=== PATIENT | male | born 1945 | race Caucasian/White ===

== ENCOUNTER → 2017-01-03 | Outpatient (CLI) | payer MEDICARE, OTHER ==
--- NOTE | 2017-01-04 09:41 | RADIOLOGY REPORT (SQ) ---
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 RADIONUCLIDE AND DOSE: 11.5 mCi F18 FDG The route of agent administration: Intravenous FASTING BLOOD SUGAR: 72 mg/dl CONTRAST TYPE AND DOSE: No CT contrast given. TECHNIQUE: Blood glucose level was verified. Above dose of FDG was injected intravenously. 2-D seg mented attenuation correction images were obtained from the base of the skull to the midthighs. Nonc ontrast CT images were obtained for attenuation correction and fusion with emission images. CT image s were performed without oral or intravenous contrast and are not sensitive for parenchymal lesions. A series of overlapping emission PET images were obtained. Images reviewed and manipulated at [facility] work station by the radiologist. Images stored on PACS. LIMITATIONS: None. FINDINGS: HEAD AND NECK: No areas of abnormal metabolic activity in the soft tissues of the head and neck. CHEST: Hypermetabolic left station 6 mass/conglomerate of nodes measuring 8.6 x 3.2 cm and 12 SUV. H ypermetabolic mass in the lingula measuring about 3.1 x 7.8 cm and 9.5 SUV. Hypermetabolic station 7 node measuring roughly 3.1 x 3.6 cm and 12 SUV. Left hilar nodes measuring up to 1.5 cm and 9.6 SUV . ABDOMEN AND PELVIS: No areas of abnormal metabolic activity in the abdomen or pelvis. Expected physi ologic activity is present in the genitourinary system and bowel. PROXIMAL LOWER EXTREMITIES: No areas of abnormal metabolic activity in the soft tissues of the lower extremities. BONES: No abnormal metabolic activity in the visualized skeleton. ADDITIONAL CT FINDINGS: No additional significant findings on the noncontrast CT images. OTHER: No other significant findings. IMPRESSION: Hypermetabolic mass in the lingula. Hypermetabolic station 6, 7 and 10 nodes. TECHNICAL DOCUMENTATION: JOB ID: [id number]- All Rights Reserved
== END ==
LOC: RAD 18:53
PROVIDERS: ATTEND Internal Medicine Medical Oncology
DX: C34.92 Malignant neoplasm of unspecified part of left bronchus or lung (principal)
CPT/HCPCS: 78815; A9552

== ENCOUNTER → 2017-01-12 | Outpatient (CLI) | payer MEDICARE, OTHER ==
--- NOTE | 2017-01-12 10:07 | RADIOLOGY REPORT (SQ) ---
EXAM DESCRIPTION: MRI HEAD COMBO COMPLETED DATE/TIME: 01/12/2017 8:56 am REASON FOR STUDY: MALIGNANT NEOPLASM OF UNSP PART OF UNSP BRONCHUS OR LUNG (C34.90) C34.90 MALIGNAN T NEOPLASM OF UNSP PART OF UNSP BRONCHUS OR L COMPARISON: None. TECHNIQUE: Multiplanar imaging includes noncontrasted T1, T2, FLAIR, diffusion with ADC map and post gadolinium contrast T1 sequences. Images stored on PACS. CONTRAST TYPE AND DOSE: 15 mL Multihance. RENAL FUNCTION: GFR 54 LIMITATIONS: None. FINDINGS: ANATOMY: No anomalies. Normal vascular flow voids. Pituitary fossa normal. CSF SPACES: Normal in size and contour. No hemorrhage. CEREBRUM: Sulci and gyri normal in size and contour. Spotty multifocal white matter signal on FLAIR imaging. Likely related to small vessel vasculopathy, typically microvascular ischemic disease in a patient of this age. No evidence of hemorrhage, mass, or extraaxial fluid collection. No abnormal en hancement post contrast. POSTERIOR FOSSA: No signal alteration. No hemorrhage. No edema, masses, or mass effect. Internal eloy tory canals, cerebellopontine angles, mastoids normal. No enhancing lesions. No abnormal enhancement post contrast. DIFFUSION IMAGING: Negative for acute or subacute infarction. ORBITS: No masses. Globes normal. PARANASAL SINUSES: No fluid levels. Mucosa normal. OTHER: No other significant finding. IMPRESSION: 1. Mild chronic small vessel changes. No acute or suspicious intracranial abnormality. No enhancing lesions or evidence of metastatic disease. EVIDENCE OF ACUTE STROKE: NO. TECHNICAL DOCUMENTATION: JOB ID: [id number] [employer]- All Rights Reserved
== END ==
LOC: RAD 06:47
PROVIDERS: ATTEND Radiology Radiation Oncology
DX: C34.90 Malignant neoplasm of unspecified part of unspecified bronchus or lung (principal)
CPT/HCPCS: 82565; 70553; A9577

== ENCOUNTER → 2017-03-03 | Outpatient (CLI) | payer MEDICARE, OTHER ==
--- NOTE | 2017-03-03 12:34 | RADIOLOGY REPORT (SQ) ---
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 Images reviewed with lung, soft tissue and bone windows. Reconstructed coronal and sagittal MPR images reviewed. All images stored on PACS. All CT scanners at this facility use dose modulation, iterative reconstruction, and/or weight based d osing when appropriate to reduce radiation dose to as low as reasonably achievable (ALARA). [facility]: Dose Right [facility]: CareDose [facility]: Dose Right [facility]: Teradose 4D [facility]: [employer] CONTRAST TYPE AND DOSE: contrast/concentration: Isovue 370.00 mg/ml; Total Contrast Delivered: 80.0 ml; Total Saline Delivered: 55.0 ml RENAL FUNCTION: Creatinine 1.1 BUN 19 RADIATION DOSE: CT Rad equipment meets quality standard of care and radiation dose reduction techniq ues were employed. CTDIvol: 7.7 mGy. DLP: 338 mGy-cm. . LIMITATIONS: None. FINDINGS: LUNGS AND PLEURA: There is an area of masslike thickening along the fissure on the left si de. This measures 37 x 15 mm. This is best seen on image 76 series 4. Pleural thickening with calc ification in the dome of left diaphragm. No other pleural or pulmonary abnormality is seen. HILAR AND MEDIASTINAL STRUCTURES: There are multiple small nonspecific mediastinal nodes. HEART AND VASCULAR STRUCTURES: No aneurysm or dissection. No central pulmonary emboli. No pericardi al effusion. HARDWARE: Injection port on the right. UPPER ABDOMEN: No significant abnormality. THYROID AND OTHER SOFT TISSUES: No masses. No adenopathy. BONES: No osseous lesions is seen. OTHER: No other significant finding. IMPRESSION: 1. Masslike thickening along the fissure on the left. Concerning for neoplasm, especia lly given the PET-CT findings. 2. Pleural thickening with calcification at the dome of the left diaphragm. 3. Small nonspecific mediastinal nodes. TECHNICAL DOCUMENTATION: JOB ID: [id number] Quality ID # [id number]: Final reports with documentation of one or more dose reduction techniques (e.g., Au tomated exposure control, adjustment of the mA and/or kV according to patient size, use of iterative reconstruction technique) 2010 [employer]- All Rights Reserved
== END ==
LOC: RAD 09:34
PROVIDERS: ATTEND Internal Medicine Medical Oncology
DX: C34.92 Malignant neoplasm of unspecified part of left bronchus or lung (principal)
CPT/HCPCS: 71260

== ENCOUNTER 2017-04-23 19:41 | Emergency (ER) | payer MEDICARE, OTHER ==
[2017-04-23] MEDS ORDERED: NORMAL SALINE 1000 ML 1,000 ML IV ONE (20:05)
--- NOTE | 2017-04-23 20:07 | ER Document Report ---
ED General - General Stated Complaint: GENERAL WEAKNESS Time Seen by Provider: 04/23/17 19:56 Notes: Patient is a 72-year-old male that comes by EMS for chief complaint of generalized weakness. He states that he felt okay until today and now he feels like he is weak and just wants to lie in bed. He states he is thirsty. states he has not had anything to eat or drink today. states that he cannot get out of bed or even walk today, normally he walks without assistance and cares for himself mainly. states his urine is dark and foul smelling. He denies fever, nausea or vomiting, shortness of breath, chest pain, any locations of pain. He recently completed a round of chemotherapy over 2 weeks ago, pending radiation therapy for lung cancer. No metastasis known. Other past medical history includes type 2 diabetes on insulin and BPH. No cardiovascular history reported. He sees Dr. Low, [place] TRAVEL OUTSIDE OF THE [place] IN LAST 30 DAYS: No - Related Data Allergies/Adverse Reactions: No Known Allergies Allergy (Unverified 04/24/17 00:09) Past Medical History - General Information source: Patient - Social History Smoking Status: Never Smoker Frequency of alcohol use: None Drug Abuse: None Lives with: Family Family History: Reviewed & Not Pertinent Endocrine Medical History: Reports: Hx Diabetes Mellitus Type 2 Malignancy Medical History: Reports Hx Lung Cancer Surgical Hx: Negative - Immunizations Immunizations up to date: Yes Hx Diphtheria, Pertussis, Tetanus Vaccination: Yes Review of Systems - Review of Systems Constitutional: See HPI EENT: No symptoms reported Cardiovascular: No symptoms reported Respiratory: No symptoms reported Gastrointestinal: No symptoms reported Genitourinary: No symptoms reported Male Genitourinary: No symptoms reported Musculoskeletal: No symptoms reported Skin: No symptoms reported Hematologic/Lymphatic: No symptoms reported Neurological/Psychological: No symptoms reported Physical Exam - Vital signs Vitals: Resp Pulse Ox 18 91 L 04/23/17 19:57 04/23/17 19:57 Interpretation: Normal - General General appearance: Appears well, Alert In distress: None - HEENT Head: Normocephalic, Atraumatic Eyes: Normal Conjunctiva: Normal Extraocular movements intact: Yes Eyelashes: Normal Pupils: PERRL Nasal: Normal Mouth/Lips: Normal Mucous membranes: Normal Pharynx: Normal Neck: Normal - Respiratory Respiratory status: No respiratory distress Chest status: Nontender Breath sounds: Normal. No: Decreased air movement, Wheezing Chest palpation: Normal - Cardiovascular Rhythm: Regular. No: Tachycardia Heart sounds: Normal auscultation, S1 appreciated, S2 appreciated Murmur: No - Abdominal Inspection: Normal Distension: No distension Bowel sounds: Normal Tenderness: Nontender. No: Tender, Guarding - Back Back: Normal, Nontender - Extremities General upper extremity: Normal inspection, Nontender, Normal strength, Normal temperature General lower extremity: Other - Slightly weak in both legs although he can raise both equally and pressed down with both feet equally, normal distal neurovascular exam - Neurological Neuro grossly intact: Yes Cognition: Normal Orientation: AAOx4 Rafael Coma Scale Eye Opening: Spontaneous [place] Coma Scale Verbal: Oriented Rafael Coma Scale Motor: Obeys Commands York Coma Scale Total: 15 Speech: Normal Cranial nerves: Normal Cerebellar coordination: Other - Patient cannot sit up or stand up on his own Sensory: Normal - Psychological Associated symptoms: Normal affect, Normal mood - Skin Skin Temperature: Warm Skin Moisture: Dry Skin Color: Normal Course - Re-evaluation Re-evalutation: CBC, chemistry generally unremarkable. Catheter performed to obtain urine because patient could not urinate initially, he was given IV fluids. Urine does indicate infection with 3+ bacteria, white blood cells, culture was placed. Given Rocephin. Discussed results with family, will attempt to send patient home with oral antibiotics and close follow-up with his oncologist. We will call his oncologist. concerned because patient cannot walk. I attempted to get patient up, he collapses back down to the bed. I attempted to stand the patient and have him ambulate but I had to pull him out of bed and he practically pulled me back down into the bed. Unable to ambulate. Performed Cat scan to rule out mass because of this. Blood cultures will be run, lactic acid and troponin/EKG checked. Patient did develop a fever, given Tylenol. Attempted to contact patient's Oncologist, Dr. Low, still pending call back. No remarkable additional workup. Suspect weakness is from the UTI. Discussed with Dr. Heredia, patient to be admitted to the hospital. Dr. Heredia requests consult with neurology because of patient's inability to walk. 04/24/17 03:30 Patient was reevaluated again at bedside, I began to discuss details again with patient and family, noticed patient is soaked although his color is improved. Appears to have broken the fever. Patient is now able to sit up and is more verbal. Patient is drinking p.o. fluids. Will reevaluate shortly. 04/24/17 On reevaluation patient can now sit up, stand up, and ambulate without any difficulty. Patient is asking to go home. Discussed with Dr. Dias. Patient will be covered with antibiotics, instructed to treat fever to keep the symptoms away, discussed return precautions in detail, patient and state understanding and agreement. - Vital Signs Vital signs: Temp Pulse Resp BP Pulse Ox 98.1 F 21 H 119/60 93 04/24/17 04:34 04/24/17 03:31 04/24/17 04:03 04/24/17 04:01 - Laboratory Result Diagrams: 04/23/17 19:54 04/23/17 19:54 Laboratory results interpreted by me: 04/23/17 04/23/17 04/23/17 19:54 19:54 19:54 RBC 3.49 L Hgb 11.4 L Hct 33.8 L RDW 15.4 H Monocytes % 19.6 H Absolute Monocytes 1.5 H VBG pH VBG pCO2 BUN 28 H Creatinine 1.32 H Est GFR (Non-Af Amer) 53 L Glucose 244 H Alkaline Phosphatase 127 H Creatine Kinase 37 L Urine Protein Urine Glucose (UA) Urine Blood Ur Leukocyte Esterase 04/23/17 04/24/17 22:25 00:51 RBC Hgb Hct RDW Monocytes % Absolute Monocytes VBG pH 7.46 H VBG pCO2 34.6 L BUN Creatinine Est GFR (Non-Af Amer) Glucose Alkaline Phosphatase Creatine Kinase Urine Protein 30 H Urine Glucose (UA) 50 H Urine Blood SMALL H Ur Leukocyte Esterase SMALL H Discharge - Discharge Clinical Impression: Weakness Urinary tract infection Qualifiers: Urinary tract infection type: site unspecified Hematuria presence: without hematuria Qualified Code(s): N39.0 - Urinary tract infection, site not specified Fever Qualifiers: Fever type: unspecified Qualified Code(s): R50.9 - Fever, unspecified Condition: Stable Disposition: HOME, SELF-CARE Additional Instructions: Workup shows a urinary tract infection, we have a culture pending. Take the Keflex antibiotics as directed, rest, drink plenty fluids. Follow-up on Wednesday with your primary care provider. Return if you worsen in anyway including increased weakness, vomiting, confusion , or any other concerning symptoms. Prescriptions: Cephalexin Monohydrate [Keflex 500 mg Capsule] 500 mg PO QID #28 capsule
[2017-04-23 20:11] LABS: ABSOLUTE MONOCYTES (AUTO) 1.5 10^3/uL (0.1-1.4); BASOPHILS % (AUTO) 0.4 % (0-2); HEMATOCRIT 33.8 % (37.9-51.0); HEMOGLOBIN 11.4 g/dL (13.5-17.0); LYMPHOCYTES % (AUTO) 13.5 % (13-45); MEAN CORPUSCULAR HEMOGLOBIN 32.6 pg (27.0-33.4); MEAN CORPUSCULAR HGB CONC 33.6 g/dL (32.0-36.0); MEAN CORPUSCULAR VOLUME 97 fl (80-97); MONOCYTES % (AUTO) 19.6 % (3-13); PLATELET COUNT 407 10^3/uL (150-450); RED BLOOD COUNT 3.49 10^6/uL (4.35-5.55); RED CELL DISTRIBUTION WIDTH 15.4 % (11.5-14.0); SEGMENTED NEUTROPHILS % (AUTO) 66.5 % (42-78); TOTAL CELLS COUNTED % (AUTO) 100 %; WHITE BLOOD COUNT 7.6 10^3/uL (4.0-10.5)
[2017-04-23 20:32] LABS: ALANINE AMINOTRANSFERASE 41 U/L (21-72); ALBUMIN 4.1 g/dL (3.5-5.0); ALKALINE PHOSPHATASE 127 U/L (38-126); ANION GAP 10 (5-19); ASPARTATE AMINO TRANSFERASE 29 U/L (17-59); BILIRUBIN,DIRECT 0.3 mg/dL (0.0-0.4); BILIRUBIN,TOTAL 0.8 mg/dL (0.2-1.3); BLOOD UREA NITROGEN 28 mg/dL (7-20); CALCIUM 9.6 mg/dL (8.4-10.2); CARBON DIOXIDE 24 mmol/L (22-30); CHLORIDE 103 mmol/L (98-107); GLUCOSE 244 mg/dL (75-110); POTASSIUM 4.5 mmol/L (3.6-5.0); TOTAL PROTEIN 7.3 g/dL (6.3-8.2)
[2017-04-23 22:59] LABS: APPEARANCE,URINE CLOUDY; BILIRUBIN,URINE NEGATIVE (NEGATIVE); COLOR,URINE YELLOW; GLUCOSE, URINE 50 mg/dL (NEGATIVE); KETONES,URINE NEGATIVE (NEGATIVE); LEUKOCYTE ESTERASE,URINE SMALL (NEGATIVE); NITRITE,URINE NEGATIVE (NEGATIVE); PROTEIN,URINE 30 mg/dL (NEGATIVE); URINE SPECIFIC GRAVITY 1.016; UROBILINOGEN,URINE NEGATIVE mg/dL (<2.0)
[2017-04-23] MEDS ORDERED: CEFTRIAXONE 1 GM/D5W RTU 1 GM/50 ML RTUPB IV ONE (23:12)
[2017-04-24] MEDS ORDERED: ACETAMINOPHEN 325 MG TABLET PO ONE (00:25)
[2017-04-24] MEDS ORDERED: CEFTRIAXONE INJ 1000 MG VIAL ONE (00:29)
[2017-04-24 01:05] LABS: VENOUS BLOOD BASE EXCESS 0.4 mmol/L; VENOUS BLOOD HCO3 23.9 mmol/L (20-32); VENOUS BLOOD PCO2 34.6 mmHg (35-63); VENOUS BLOOD PH 7.46 (7.30-7.42)
--- NOTE | 2017-04-24 02:17 | RADIOLOGY REPORT (SQ) ---
EXAM DESCRIPTION: CHEST SINGLE VIEW CLINICAL HISTORY: 72 years, Male, hypoxia COMPARISON: CT, 03/03/2017. LIMITATIONS: None. FINDINGS: Small bandlike opacity of the left lower lobe, moderate elevation of the left hemidiaphragm, normal cardiac silhouette, atherosclerosis, right jugular miniport catheter tip at the cavoatrial junction, and cervicothoracic hardware fusion. Stable. IMPRESSION: Stable bandlike opacity of the left lower lobe. 2011 [employer]- All Rights Reserved
--- NOTE | 2017-04-24 02:30 | RADIOLOGY REPORT (SQ) ---
EXAM DESCRIPTION: CT HEAD WITHOUT CLINICAL HISTORY: 72 years Male, can't stand/walk, has cancer COMPARISON: 01/12/2017. TECHNIQUE: No contrast. This exam was performed according to our departmental dose-optimization program, which includes automated exposure control, adjustment of the mA and/or kV according to patient size and/or use of iterative reconstruction technique. FINDINGS: Minimal white matter microangiopathy, and atherosclerosis. No hemorrhage or infarct. No mass, mass effect, or midline shift. Extra-axial structures appear otherwise grossly intact. IMPRESSION: No acute findings.
--- NOTE | 2017-04-24 03:56 | ER Document Report ---
ED General - General Chief Complaint: General Weakness Stated Complaint: GENERAL WEAKNESS Time Seen by Provider: 04/23/17 19:56 Notes: Patient is a 72-year-old male that comes by EMS for chief complaint of generalized weakness. He states that he felt okay until today and now he feels like he is weak and just wants to lie in bed. He states he is thirsty. states he has not had anything to eat or drink today. states that he cannot get out of bed or even walk today, normally he walks without assistance and cares for himself mainly. states his urine is dark and foul smelling. He denies fever, nausea or vomiting, shortness of breath, chest pain, any locations of pain. He recently completed a round of chemotherapy over 2 weeks ago, pending radiation therapy for lung cancer. No metastasis known. Other past medical history includes type 2 diabetes on insulin and BPH. No cardiovascular history reported. He sees Dr. Low, [place] TRAVEL OUTSIDE OF THE [place] IN LAST 30 DAYS: No - Related Data Allergies/Adverse Reactions: No Known Allergies Allergy (Unverified 04/24/17 00:09) Past Medical History - Social History Smoking Status: Unknown if Ever Smoked Patient has suicidal ideation: No Patient has homicidal ideation: No Renal/ Medical History: Denies: Hx Peritoneal Dialysis Physical Exam - Vital signs Vitals: Resp Pulse Ox 18 91 L 04/23/17 19:57 04/23/17 19:57 Course - Re-evaluation Re-evalutation: CBC, chemistry generally unremarkable. Catheter performed to obtain urine because patient could not urinate initially, he was given IV fluids. Urine does indicate infection with 3+ bacteria, white blood cells, culture was placed. Given Rocephin. Discussed results with family, will attempt to send patient home with oral antibiotics and close follow-up with his oncologist. We will call his oncologist. concerned because patient cannot walk. I attempted to get patient up, he collapses back down to the bed. I attempted to stand the patient and have him ambulate but I had to pull him out of bed and he practically pulled me back down into the bed. Unable to ambulate. Performed Cat scan to rule out mass because of this. Blood cultures will be run, lactic acid and troponin/EKG checked. Patient did develop a fever, given Tylenol. Attempted to contact patient's Oncologist, Dr. Low, still pending call back. No remarkable additional workup. Suspect weakness is from the UTI. Discussed with Dr. Heredia, patient will be admitted to the hospital. Dr. Heredia requests consult with neurology because of patient's inability to walk. 04/24/17 03:30 Patient was reevaluated again at bedside, I began to discuss details again with patient and family, noticed patient is soaked although his color is improved. Appears to have broken the fever. Patient is now able to sit up and is more verbal. Patient is drinking p.o. fluids. Will reevaluate shortly. - Vital Signs Vital signs: Temp Pulse Resp BP Pulse Ox 98.3 F 21 H 121/60 91 L 04/24/17 02:58 04/24/17 02:31 04/24/17 02:31 04/24/17 02:31 - Laboratory Result Diagrams: 04/23/17 19:54 04/23/17 19:54 Laboratory results interpreted by me: 04/23/17 04/23/17 04/23/17 19:54 19:54 19:54 RBC 3.49 L Hgb 11.4 L Hct 33.8 L RDW 15.4 H Monocytes % 19.6 H Absolute Monocytes 1.5 H VBG pH VBG pCO2 BUN 28 H Creatinine 1.32 H Est GFR (Non-Af Amer) 53 L Glucose 244 H Alkaline Phosphatase 127 H Creatine Kinase 37 L Urine Protein Urine Glucose (UA) Urine Blood Ur Leukocyte Esterase 04/23/17 04/24/17 22:25 00:51 RBC Hgb Hct RDW Monocytes % Absolute Monocytes VBG pH 7.46 H VBG pCO2 34.6 L BUN Creatinine Est GFR (Non-Af Amer) Glucose Alkaline Phosphatase Creatine Kinase Urine Protein 30 H Urine Glucose (UA) 50 H Urine Blood SMALL H Ur Leukocyte Esterase SMALL H Discharge - Discharge Clinical Impression: Weakness Urinary tract infection Qualifiers: Urinary tract infection type: site unspecified Hematuria presence: without hematuria Qualified Code(s): N39.0 - Urinary tract infection, site not specified Fever Qualifiers: Fever type: unspecified Qualified Code(s): R50.9 - Fever, unspecified Condition: Stable Disposition: HOME, SELF-CARE
[2017-04-24 04:35] VITALS: BP 119/60
--- NOTE | 2017-04-24 10:24 | EKG REPORT ---
SEVERITY:- BORDERLINE ECG - SINUS RHYTHM BORDERLINE T WAVE ABNORMALITIES : Confirmed by: Brett Bullard 24-Apr-2017 10:24:05
== END 2017-04-24 04:35 | disposition home or self-care (01) ==
LOC: ER 19:41 → UNDOADMIN 04-24 02:52 → EH 04-24 02:52 → ER 04-24 04:35
DX: R53.1 Weakness (principal); N39.0 Urinary tract infection, site not specified; R50.9 Fever, unspecified; E11.9 Type 2 diabetes mellitus without complications
CPT/HCPCS: 93005; 99285; 96361; 96365; 36415; 87040; 87086; 82550; 85025; 87088; 80053; 81001; 84484; 87186; 82803; 83605; 71045; 70450; 93010; A9270; J0696; J7030

== ENCOUNTER → 2017-09-28 | Outpatient (CLI) | payer MEDICARE, OTHER ==
--- NOTE | 2017-09-28 12:27 | RADIOLOGY REPORT (SQ) ---
EXAM DESCRIPTION: CT CHEST WITH; CT ABDOMEN IV CONTRAST ONLY COMPLETED DATE/TIME: 09/28/2017 10:14 am REASON FOR STUDY: MALIGNANT NEOPLASM OF UNSP PART OF LEFT BRONCHUS OR LUNG C34.92 MALIGNANT NEOPLAS M OF UNSP PART OF LEFT BRONCHUS OR L COMPARISON: CT chest 03/03/2017 PET-CT 01/13/2017 CONTRAST TYPE AND DOSE: contrast/concentration: Isovue 370.00 mg/ml; Total Contrast Delivered: 83.0 ml; Total Saline Delivered: 68.0 ml RENAL FUNCTION: Creatinine 1.0 TECHNIQUE: CT scan of the chest performed using helical scanning technique with dynamic intravenous contrast injection. Images reviewed with lung, soft tissue and bone windows. Reconstructed coronal a nd sagittal MPR images reviewed. All images stored on PACS. CT scan of the abdomen performed with intravenous and without oral contrastusing helical scanning corby hnique with dynamic intravenous contrast injection. Images reviewed with lung, soft tissue and bone windows. Reconstructed coronal and sagittal MPR images reviewed. Delayed images for evaluation of t he urinary system also acquired and evaluated. All images stored on PACS. All CT scanners at this facility use dose modulation, iterative reconstruction, and/or weight based d osing when appropriate to reduce radiation dose to as low as reasonably achievable (ALARA). [facility]: Dose Right [facility]: CareDose [facility]: Dose Right [facility]: Teradose 4D [facility]: [employer] RADIATION DOSE: CT Rad equipment meets quality standard of care and radiation dose reduction techniq ues were employed. CTDIvol: 5.9 - 7.1 mGy. DLP: 749 mGy-cm. . LIMITATIONS: None. FINDINGS: CHEST: LUNGS AND PLEURA: On axial image 77, bandlike scarring or consolidation is present, 3.4 x 1.5 cm in s ize (was 3.7 x 1.5 cm on 03/03/2017, 7.8 x 3 cm in size on PET-CT 01/13/2017. Stable benign calcified granuloma left upper lobe. Stable left pleural plaques. No pleural effusion s or pneumothorax. No worrisome right-sided nodules. HILAR AND MEDIASTINAL STRUCTURES: Left hilar and prevascular lymph nodes seen on PET-CT 01/13/2017 awan ve significantly decreased in size, on today's exam a sub- carinal lymph node 1.6 x 0.9 cm persists, unchanged from 03/03/2017 (was 3.6 x 3 cm on PET-CT 01/13/2017. On today's study, less than 7 mm short axis prevascular lymph nodes are present unchanged from 2016) was conglomerate mass of adenopathy 8.6 x 3.2 cm on PET-CT 01/13/2017). HEART AND VASCULAR STRUCTURES: No aneurysm or dissection. No central pulmonary emboli. No pericardi al effusion. Moderate coronary artery calcifications HARDWARE: None. THYROID AND OTHER SOFT TISSUES: No masses. No adenopathy. BONES: No significant finding. OTHER: No other significant finding. ABDOMEN AND PELVIS: LIVER: Normal size. No masses. No dilated ducts. SPLEEN: Normal size. No focal lesions. PANCREAS: No masses. No significant calcifications. No adjacent inflammation or peripancreatic fluid collections. Pancreatic duct not dilated. GALLBLADDER: No identified stones by CT criteria. No inflammatory changes to suggest cholecystitis. ADRENAL GLANDS: No significant masses or asymmetry. RIGHT KIDNEY AND URETER: No solid masses. No significant calcification. No hydronephrosis or hydroure ter. LEFT KIDNEY AND URETER: No solid masses. No significant calcification. No hydronephrosis or hydrouret er. AORTA AND VESSELS: No abdominal aortic aneurysm. No dissection. Visceral artery origin calcification without high-grade stenosis. RETROPERITONEUM: No retroperitoneal adenopathy, hemorrhage or masses. BOWEL AND PERITONEAL CAVITY: No masses or inflammatory changes. No free fluid or peritoneal masses. APPENDIX: Not in the field of view ABDOMINAL WALL: No masses. No hernias. BONES: No significant or acute findings. OTHER: No other significant finding. IMPRESSION: Treatment response, with decrease in size of lingular mass, decrease in size of mediasti nal and adenopathy compared to PET-CT 01/13/2017. Further decrease in size of lingular mass since . No CT evidence of metastatic disease to the abdomen TECHNICAL DOCUMENTATION: JOB ID: [id number] Quality ID # [id number]: Final reports with documentation of one or more dose reduction techniques (e.g., Au tomated exposure control, adjustment of the mA and/or kV according to patient size, use of iterative reconstruction technique) 2010 [employer]- All Rights Reserved Reading location - IP/workstation name: [facility]
== END ==
LOC: RAD 09:50
PROVIDERS: ATTEND Internal Medicine Medical Oncology
DX: C34.92 Malignant neoplasm of unspecified part of left bronchus or lung (principal)
CPT/HCPCS: 71260; 74160; 82565

== ENCOUNTER → 2017-12-14 | Outpatient (CLI) | payer MEDICARE, OTHER ==
--- NOTE | 2017-12-15 09:52 | RADIOLOGY REPORT (SQ) ---
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 TECHNIQUE: Blood glucose level was verified. Above dose of FDG was injected intravenously. 2-D seg mented attenuation correction images were obtained from the base of the skull to the midthighs. Nonc ontrast CT images were obtained for attenuation correction and fusion with emission images. CT image s were performed without oral or intravenous contrast and are not sensitive for parenchymal lesions. A series of overlapping emission PET images were obtained. Images reviewed and manipulated at [facility] by the radiologist. Images stored on PACS. LIMITATIONS: None. FINDINGS: HEAD AND NECK: No areas of abnormal metabolic activity in the soft tissues of the head and neck. CHEST: Marked improvement. Residual mildly hypermetabolic 1 cm station 4R node 2.2 to 3.0 SUV. Stat ion 10R 1 cm node 2.6 to 3.0 SUV. Subsegmental airspace disease left lower lobe 3.4 to 4.0 SUV. ABDOMEN AND PELVIS: No areas of abnormal metabolic activity in the abdomen or pelvis. Expected physi ologic activity is present in the genitourinary system and bowel. PROXIMAL LOWER EXTREMITIES: No areas of abnormal metabolic activity in the soft tissues of the lower extremities. BONES: No abnormal metabolic activity in the visualized skeleton. ADDITIONAL CT FINDINGS: No significant change in morphologic appearance of airspace disease in the le ft lower lobe since the CT 12/07/2017. Note on that report, the abnormality is described as being in t he right lower lobe however it was and still is in the left lower lobe. OTHER: No other significant findings. IMPRESSION: 1. Marked improvement with residual small station 4R and 10R hypermetabolic nodes. 2. Hypermetabolic left lower lobe airspace disease is nonspecific. Infectious, post radiation, less likely bronchogenic spread of tumor. TECHNICAL DOCUMENTATION: JOB ID: [id number] [employer]- All Rights Reserved Reading location - IP/workstation name: [email or web address]
== END ==
LOC: RAD 18:09
PROVIDERS: ATTEND Internal Medicine Medical Oncology
DX: C34.92 Malignant neoplasm of unspecified part of left bronchus or lung (principal)
CPT/HCPCS: 78815; A9552

== ENCOUNTER → 2018-05-17 | Outpatient (CLI) | payer MEDICARE, OTHER ==
--- NOTE | 2018-05-18 09:23 | RADIOLOGY REPORT (SQ) ---
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 TECHNIQUE: Blood glucose level was verified. Above dose of FDG was injected intravenously. 2-D seg mented attenuation correction images were obtained from the base of the skull to the midthighs. Nonc ontrast CT images were obtained for attenuation correction and fusion with emission images. CT image s were performed without oral or intravenous contrast and are not sensitive for parenchymal lesions. A series of overlapping emission PET images were obtained. Images reviewed and manipulated at [facility] work station by the radiologist. Images stored on PACS. LIMITATIONS: None. FINDINGS: HEAD AND NECK: No areas of abnormal metabolic activity in the soft tissues of the head and neck. CHEST: There is bandlike consolidation in the left perihilar region from old radiation therapy. Bron chiectasis and consolidation is present. This has SUV of about 2.1 which is barely above liver activ ity. 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 No hypermetabolic lung parenchymal lesions are seen today. 1 cm short axis pretracheal lymph node axial image 85 (level 4)with SUV of 2 (was SUV 3.0 on 12/18/19 18). Sub- carinal/right lower hilar less than 1 cm short axis lymph node with SUV 3.2 (was SUV of for on ). ABDOMEN AND PELVIS: No areas of abnormal metabolic activity in the abdomen or pelvis. Expected physi ologic activity is present in the genitourinary system and bowel. PROXIMAL LOWER EXTREMITIES: No areas of abnormal metabolic activity in the soft tissues of the lower extremities. BONES: No abnormal metabolic activity in the visualized skeleton. ADDITIONAL CT FINDINGS: Right permanent central line tip superior vena cava. Post cervical fusion wi th hardware, heavily calcified abdominal aorta and proximal visceral arterial branches. OTHER: Liver background activity 1.9 SUV. Blood pool background activity 1.6 SUV IMPRESSION: Continued treatment response TECHNICAL DOCUMENTATION: JOB ID: [id number] [employer]- All Rights Reserved Reading location - IP/workstation name: [email or web address]
== END ==
LOC: RAD 18:43
PROVIDERS: ATTEND Internal Medicine Medical Oncology
DX: C34.92 Malignant neoplasm of unspecified part of left bronchus or lung (principal)
CPT/HCPCS: 78815; A9552

== ENCOUNTER → 2018-09-18 | Outpatient (CLI) | payer MEDICARE, OTHER ==
--- NOTE | 2018-09-19 10:12 | RADIOLOGY REPORT (SQ) ---
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 TECHNIQUE: Blood glucose level was verified. Above dose of FDG was injected intravenously. 2-D seg mented attenuation correction images were obtained from the base of the skull to the midthighs. Nonc ontrast CT images were obtained for attenuation correction and fusion with emission images. CT image s were performed without oral or intravenous contrast and are not sensitive for parenchymal lesions. A series of overlapping emission PET images were obtained. Images reviewed and manipulated at [facility] work station by the radiologist. Images stored on PACS. LIMITATIONS: None. FINDINGS: HEAD AND NECK: No areas of abnormal metabolic activity in the soft tissues of the head and neck. CHEST: There is left perihilar lung consolidation and bronchiectasis from para hilar radiation therap y. Perihilar consolidation has SUV of 2.2 which is similar compared to prior PET-CT exams. Persistent 8 mm short axis level 4 right paratracheal lymph node axial image 71, SUV 2.6 (was 1 cm sh ort axis with SUV [id number]). 1 cm short axis sub- carinal lymph node axial image 87 with SUV of 3 (was similar in size with SUV 3. [id number]). Subcentimeter right hilar lymph node axial image 82 with SUV of 2.9. This is less prominent than on 12/14/2017 and 01/03/2017. ABDOMEN AND PELVIS: No areas of abnormal metabolic activity in the abdomen or pelvis. Expected physi ologic activity is present in the genitourinary system and bowel. PROXIMAL LOWER EXTREMITIES: No areas of abnormal metabolic activity in the soft tissues of the lower extremities. BONES: No abnormal metabolic activity in the visualized skeleton. ADDITIONAL CT FINDINGS: Right-sided permanent central line tip superior vena cava. Mild cardiomegaly with calcified aortic valve and proximal coronary arteries. Heavily calcified left proximal common iliac artery OTHER: Liver background activity 2.0 SUV. Blood pool background activity 1.3 SUV IMPRESSION: Minimal low level persistent activity in mediastinal lymph nodes and post treatment left hilum as above TECHNICAL DOCUMENTATION: JOB ID: [id number] [employer]- All Rights Reserved Reading location - IP/workstation name: [email or web address]
== END ==
LOC: RAD 14:31
PROVIDERS: ATTEND Internal Medicine Medical Oncology
DX: C34.82 Malignant neoplasm of overlapping sites of left bronchus and lung (principal)
CPT/HCPCS: 78815; A9552

== ENCOUNTER → 2019-01-27 | Outpatient (CLI) | payer MEDICARE, OTHER ==
--- NOTE | 2019-01-27 11:58 | RADIOLOGY REPORT (SQ) ---
EXAM DESCRIPTION: CT CHEST WITH COMPLETED DATE/TIME: 01/27/2019 9:14 am REASON FOR STUDY: MAL DEVI UPPER LOBE, LEFT BRONCHUS OR LUNG C34.12 MALIGNANT NEOPLASM OF UPPER LOBE , LEFT BRONCHUS OR YASH COMPARISON: 12/07/2017 TECHNIQUE: CT scan of the chest performed using helical scanning technique with dynamic intravenous contrast injection. Images reviewed with lung, soft tissue and bone windows. Reconstructed coronal and sagittal MPR and MIP images reviewed. All images stored on PACS. All CT scanners at this facility use dose modulation, iterative reconstruction, and/or weight based d osing when appropriate to reduce radiation dose to as low as reasonably achievable (ALARA). [facility]: Dose Right [facility]: CareDose [facility]: Dose Right [facility]: Teradose 4D [facility]: RatePoint CONTRAST TYPE AND DOSE: 89 mL Omnipaque 350- low osmolar. RENAL FUNCTION: Creatinine 1.2 RADIATION DOSE: . LIMITATIONS: None. FINDINGS: LUNGS AND PLEURA: Moderate left pleural effusion. Considerable paramediastinal opacificat ion on the left. These findings have increased since the prior study. Scarring in the left base. L ikely prior radiation treatment. HILAR AND MEDIASTINAL STRUCTURES: Mild mediastinal adenopathy that is slightly increased since the ea rlier study. A pretracheal node measures 15 mm. HEART AND VASCULAR STRUCTURES: No aneurysm or dissection. No central pulmonary emboli. No pericardi al effusion. HARDWARE: Injection port on the right. UPPER ABDOMEN: See separate report of the CT of the abdomen. THYROID AND OTHER SOFT TISSUES: No masses. No adenopathy. BONES: No significant finding. OTHER: No other significant finding. IMPRESSION: 1. Considerable paramediastinal opacification on the left. There are some air bronchog berta. These findings likely represent radiation change. However, this paramediastinal density is in creased since the prior study. Consider repeat PET-CT. There is a moderate left pleural effusion. 2. Mild mediastinal adenopathy slightly increased since the earlier study. TECHNICAL DOCUMENTATION: JOB ID: [id number] Quality ID # [id number]: Final reports with documentation of one or more dose reduction techniques (e.g., Au tomated exposure control, adjustment of the mA and/or kV according to patient size, use of iterative reconstruction technique) 2010 [employer]- All Rights Reserved Reading location - IP/workstation name: [email or web address]
--- NOTE | 2019-01-27 12:20 | RADIOLOGY REPORT (SQ) ---
EXAM DESCRIPTION: CT ABD/PELVIS WITH IV ONLY COMPLETED DATE/TIME: 01/27/2019 9:11 am REASON FOR STUDY: MAL DEVI UPPER LOBE, LEFT BRONCHUS OR LUNG C34.12 MALIGNANT NEOPLASM OF UPPER LOBE , LEFT BRONCHUS OR YASH COMPARISON: PET-CT 09/18/2018 TECHNIQUE: CT scan of the abdomen and pelvis performed using helical scanning technique with dynamic intravenous contrast injection. No oral contrast. Images reviewed with lung, soft tissue, and bone windows. Reconstructed coronal and sagittal MPR images reviewed. Delayed images for evaluation of the urinary system also acquired. All images stored on PACS. All CT scanners at this facility use dose modulation, iterative reconstruction, and/or weight based d osing when appropriate to reduce radiation dose to as low as reasonably achievable (ALARA). [facility]: Dose Right [facility]: CareDose [facility]: Dose Right [facility]: Teradose 4D [facility]: [employer] CONTRAST TYPE AND DOSE: 89 mL Omnipaque 350- low osmolar. RENAL FUNCTION: Creatinine 1.2 RADIATION DOSE: . LIMITATIONS: None. FINDINGS: LOWER CHEST: See separate report of the CT of the chest. LIVER: Normal size. No masses. No dilated ducts. SPLEEN: Normal size. No focal lesions. PANCREAS: No masses. No significant calcifications. No adjacent inflammation or peripancreatic fluid collections. Pancreatic duct not dilated. GALLBLADDER: No identified stones by CT criteria. No inflammatory changes to suggest cholecystitis. ADRENAL GLANDS: No significant masses or asymmetry. RIGHT KIDNEY AND URETER: No solid masses. No significant calcifications. No hydronephrosis or hyd roureter. LEFT KIDNEY AND URETER: No solid masses. No significant calcifications. No hydronephrosis or hydr oureter. AORTA AND VESSELS: No aneurysm. No dissection. Renal arteries, SMA, celiac without stenosis. RETROPERITONEUM: No retroperitoneal adenopathy, hemorrhage or masses. BOWEL AND PERITONEAL CAVITY: No masses or inflammatory changes. No free fluid or peritoneal masses. APPENDIX: Not identified. PELVIS: No mass. No free fluid. Normal bladder. ABDOMINAL WALL: No masses. No hernias. BONES: No significant or acute findings. OTHER: No other significant finding. IMPRESSION: NO SIGNIFICANT OR ACUTE FINDING IN THE ABDOMEN OR PELVIS ON CT SCAN WITH IV CONTRAST. TECHNICAL DOCUMENTATION: JOB ID: [id number] Quality ID # [id number]: Final reports with documentation of one or more dose reduction techniques (e.g., Au tomated exposure control, adjustment of the mA and/or kV according to patient size, use of iterative reconstruction technique) 2010 [employer]- All Rights Reserved Reading location - IP/workstation name: [email or web address]
== END ==
LOC: RAD 09:43
PROVIDERS: ATTEND Internal Medicine
DX: C34.12 Malignant neoplasm of upper lobe, left bronchus or lung (principal); J90 Pleural effusion, not elsewhere classified
CPT/HCPCS: 71260; 74177; 82565

== ENCOUNTER → 2019-02-19 | Outpatient (CLI) | payer MEDICARE, OTHER ==
--- NOTE | 2019-02-20 19:03 | RADIOLOGY REPORT (SQ) ---
EXAM DESCRIPTION: PET CT SKULL/THIGH COMPLETED DATE/TIME: 02/20/2019 12:56 am REASON FOR STUDY: (C34.2)MALIGNANT NEOPLASM OF UPPER LOBE, LEFT BRONCHUS OR LUNG C34.12 MALIGNANT N EOPLASM OF UPPER LOBE, LEFT BRONCHUS OR YASH COMPARISON: CT chest abdomen pelvis 01/27/2019 PET-CT 09/18/2018, 05/17/2018, 12/14/2017 RADIONUCLIDE AND DOSE: 10.6 mCi F18 FDG The route of agent administration: Intravenous FASTING BLOOD SUGAR: 141 mg/dl CONTRAST TYPE AND DOSE: No CT contrast given. TECHNIQUE: Blood glucose level was verified. Above dose of FDG was injected intravenously. 2-D seg mented attenuation correction images were obtained from the base of the skull to the midthighs. Nonc ontrast CT images were obtained for attenuation correction and fusion with emission images. CT image s were performed without oral or intravenous contrast and are not sensitive for parenchymal lesions. A series of overlapping emission PET images were obtained. [facility] by the radiologist. Images stored on PACS. LIMITATIONS: None. FINDINGS: HEAD AND NECK: No areas of abnormal metabolic activity in the soft tissues of the head and neck. CHEST: Stable left pleural effusion. No pleural uptake worrisome for metastatic disease. Bandlike volume loss and lung parenchymal consolidation in the left perihilar region and left medial upper lobe is present without metabolic activity, likely old post radiation change. Mediastinal lymph nodes are present as follows: 10 mm pretracheal lymph node axial image 64/255 with SUV 1.4. This is unchanged from CT chest 2018 and PET-CT 09/08/2018, and has metabolic activity less than background blood pool activity. 1.7 x 1.3 cm pre tracheal lymph node axial image 71/255 with SUV of 2.9. This has metabolic activity just above liver background, is unchanged in size compared to 01/27/2019. This was 1.4 x 1 cm in si ze on 09/18/2018 PET-CT. Right paratracheal 4R lymph node 1.7 x 1.2 cm in size axial image 72/255 with SUV of 1.8, less than b lood pool background activity. This is unchanged from 01/27/2019 CT chest. This measured 1.5 x 1 cm on 09/18/2018 PET-CT. ABDOMEN AND PELVIS: No areas of abnormal metabolic activity in the abdomen or pelvis. Expected physi ologic activity is present in the genitourinary system and bowel. PROXIMAL LOWER EXTREMITIES: No areas of abnormal metabolic activity in the soft tissues of the lower extremities. BONES: No abnormal metabolic activity in the visualized skeleton. ADDITIONAL CT FINDINGS: Small to moderate size left pleural effusion is present, stable compared to C T chest abdomen pelvis 01/27/2019. Coronary artery calcifications. Right-sided permanent central li ne tip in the superior vena cava. OTHER: Liver background activity 2.7 SUV. Blood pool background activity 2.2 SUV IMPRESSION: Stable left pleural effusion compared to 01/27/2019. No pleural metabolic activity worr isome for metastatic. Mediastinal lymph nodes are stable in size compared to 01/27/2019, with metabolic activity at or belo w baseline for liver. No increased uptake along the left hilar region TECHNICAL DOCUMENTATION: JOB ID: [id number] [employer]- All Rights Reserved Reading location - IP/workstation name: [email or web address]
== END ==
LOC: RAD 02-12 15:44
PROVIDERS: ATTEND Internal Medicine
DX: C34.12 Malignant neoplasm of upper lobe, left bronchus or lung (principal); J90 Pleural effusion, not elsewhere classified
CPT/HCPCS: 78815; A9552

== ENCOUNTER → 2019-03-24 | Outpatient (CLI) | payer MEDICARE, OTHER ==
[2019-03-24 13:42] LABS: ABSOLUTE EOSINOPHILS # (AUTO) 0.1 10^3/uL (0.0-0.6); ABSOLUTE MONOCYTES (AUTO) 0.7 10^3/uL (0.1-1.4); ABSOLUTE NEUT (AUTO) 4.6 10^3/uL (1.7-8.2); BASOPHILS % (AUTO) 0.6 % (0-2); EOSINOPHILS % (AUTO) 1.6 % (0-6); HEMATOCRIT 37.1 % (37.9-51.0); HEMOGLOBIN 12.6 g/dL (13.5-17.0); LYMPHOCYTES % (AUTO) 15.7 % (13-45); MEAN CORPUSCULAR HGB CONC 33.8 g/dL (32.0-36.0); MEAN CORPUSCULAR VOLUME 92 fl (80-97); MONOCYTES % (AUTO) 11.1 % (3-13); PLATELET COUNT 364 10^3/uL (150-450); RED BLOOD COUNT 4.05 10^6/uL (4.35-5.55); RED CELL DISTRIBUTION WIDTH 17.3 % (11.5-14.0); TOTAL CELLS COUNTED % (AUTO) 100 %; WHITE BLOOD COUNT 6.4 10^3/uL (4.0-10.5)
[2019-03-24 14:20] LABS: ERYTHROCYTE SEDIMENTATION RATE 67 mm/hr (0-20)
--- NOTE | 2019-03-24 18:00 | RADIOLOGY REPORT (SQ) ---
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 NUMBER OF VIEWS: Three views. TECHNIQUE: AP, lateral, and oblique without weight bearing radiographic images acquired of the right ankle. LIMITATIONS: None. FINDINGS: MINERALIZATION: Normal. BONES: No acute fracture or dislocation. No worrisome bone lesions. No significant osteophytes. JOINTS: No effusions. SOFT TISSUES: No soft tissue swelling. No foreign body. OTHER: No other significant finding. IMPRESSION: NO SIGNIFICANT RADIOGRAPHIC ABNORMALITY. TECHNICAL DOCUMENTATION: JOB ID: [id number] [employer]- All Rights Reserved Reading location - IP/workstation name: [email or web address]
--- NOTE | 2019-03-24 18:01 | RADIOLOGY REPORT (SQ) ---
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 NUMBER OF VIEWS: Three views. TECHNIQUE: AP, lateral and oblique without weight bearing radiographic images acquired of the left f oot. LIMITATIONS: None. FINDINGS: MINERALIZATION: Normal. BONES: No acute fracture or dislocation. No worrisome bone lesions. No significant osteophytes. JOINTS: No erosions. No sandy-articular osteopenia. No chondrocalcinosis. SOFT TISSUES: No swelling. No calcifications. OTHER: No other significant finding. IMPRESSION: NO SIGNIFICANT RADIOGRAPHIC ABNORMALITY. TECHNICAL DOCUMENTATION: JOB ID: [id number] [employer]- All Rights Reserved Reading location - IP/workstation name: [email or web address]
[2019-03-24 23:08] LABS: ALBUMIN 4.3 g/dL (3.5-5.0); ALKALINE PHOSPHATASE 129 U/L (38-126); ANION GAP 14 (5-19); ASPARTATE AMINO TRANSFERASE 24 U/L (17-59); BILIRUBIN,DIRECT 0.3 mg/dL (0.0-0.4); BILIRUBIN,TOTAL 0.8 mg/dL (0.2-1.3); BLOOD UREA NITROGEN 35 mg/dL (7-20); C-REACTIVE PROTEIN 11.8 mg/L (<10.0); CALCIUM 10.3 mg/dL (8.4-10.2); CARBON DIOXIDE 25 mmol/L (22-30); CHLORIDE 100 mmol/L (98-107); GLUCOSE 139 mg/dL (75-110); POTASSIUM 4.5 mmol/L (3.6-5.0); TOTAL PROTEIN 7.7 g/dL (6.3-8.2)
== END ==
LOC: RAD 12:59
PROVIDERS: ATTEND Nurse Practitioner Family
DX: E11.621 Type 2 diabetes mellitus with foot ulcer (principal); L97.312 Non-pressure chronic ulcer of right ankle with fat layer exposed; L97.522 Non-pressure chronic ulcer of other part of left foot with fat layer exposed
CPT/HCPCS: 36415; 80053; 83036; 85025; 85652; 86140